=== PATIENT | female | born 1965 | race Caucasian/White ===

== ENCOUNTER 2016-08-07 23:03 | Emergency (ER) | payer OTHER ==
[2016-08-08 01:21] VITALS: BP 112/68
== END 2016-08-08 01:21 | disposition home or self-care (01) ==
LOC: ED 23:03
DX: K59.00 Constipation, unspecified (principal); I10 Essential (primary) hypertension

== ENCOUNTER 2017-07-27 20:40 | Emergency (ER) | payer MEDICAID ==
[~2017-07-27] VITALS: Ht 160 cm; Wt 82.5 kg
[2017-07-27 20:44] VITALS: Ht 160 cm; Wt 82.5 kg
[2017-07-27 23:14] LABS: BASOPHIL % 0.3 % (0-2); PLATELET COUNT 192 x10^3mcL (130-400); RED CELL DISTRIBUTION WIDTH 13.3 % (11.5-14.5)
[2017-07-27 23:16] LABS: CALCIUM 8.7 mg/dL (8.5-10.1); CARBON DIOXIDE 25.3 mmol/L (21-32); CREATININE SERUM 1.3 mg/dL (0.6-1.0); POTASSIUM SERUM 3.7 mmol/L (3.5-5.1)
[2017-07-27 23:20] LABS: ALBUMIN 3.5 g/dL (3.4-5.0); BILIRUBIN TOTAL 0.4 mg/dL (0.20-1.00); TOTAL PROTEIN, SERUM 7.7 g/dL (6.4-8.2)
[2017-07-28 01:23] VITALS: BP 119/76
== END 2017-07-28 01:24 | disposition home or self-care (01) ==
LOC: ED 20:40
PROVIDERS: Emergency Medicine
DX: R10.9 Unspecified abdominal pain (principal); R11.10 Vomiting, unspecified; R19.7 Diarrhea, unspecified; I10 Essential (primary) hypertension; Z88.6 Allergy status to analgesic agent; Z88.8 Allergy status to other drugs, medicaments and biological substances
CPT/HCPCS: 83880; 87046; 87046-59; J2270; J2405; J7030

== ENCOUNTER 2018-07-12 18:35 | Inpatient (IN) | payer OTHER ==
[~2018-07-12] VITALS: Ht 160 cm; Wt 86.2 kg
[2018-07-12 18:46] VITALS: Ht 160 cm; Wt 86.2 kg
--- NOTE | 2018-07-12 18:50 | NUR ---
PT BIB CAREGIVER S/P FALL ON THURSDAY. PER CAREGIVER ATTEMPTED TO GO TO URGENT CARE BUT WAS UNABLE TO BE SEEN DUE TO INSURANCE. PER CAREGIVER PT HAS BACK PAIN BUT DENIES PATIENT HITTING HEAD OR LOC. PT MENTATION WNL PER CAREGIVER. NO ACUTE DISTRESS NOTED. AWAITING ED BED AVAILABILITY.
--- NOTE | 2018-07-12 19:42 | NUR ---
RECEIVED 52 Y/O PT BIB CAREGIVER. PER PATIENT SHE FELL THURSDAY WHILE TAKING A SHOWER AND PREVIOUSLY FELL LAST THURSDAY WALKING DOWN THE HALLWAY. PATIENT HAS MIDDLE BACK PAIN THAT RADIATES THROUGHOUT HER BACK. PATIENT STATES THAT SHE HAS BEEN CRYING AND THAT THE PAIN HAS BEEN A 10/10. PATIENT IS A&O X4.
--- NOTE | 2018-07-12 20:17 | NUR ---
DR. MCNEAL AT BEDSIDE FOR MSE.
[2018-07-12 20:40] LABS: BASOPHIL % 0.6 % (0-2); PLATELET COUNT 186 x10^3mcL (130-400)
[2018-07-12 20:50] LABS: CALCIUM 8.2 mg/dL (8.5-10.1); CARBON DIOXIDE 28.9 mmol/L (21-32); CREATININE SERUM 1.3 mg/dL (0.6-1.0); POTASSIUM SERUM 3.4 mmol/L (3.5-5.1)
[2018-07-12 21:06] LABS: BILIRUBIN TOTAL 0.42 mg/dL (0.20-1.00); FREE T4 0.81 ng/dL (0.76-1.46); TOTAL PROTEIN, SERUM 6.8 g/dL (6.4-8.2)
[2018-07-12 21:11] LABS: ALBUMIN 2.9 g/dL (3.4-5.0)
--- NOTE | 2018-07-12 21:24 | NUR ---
PATIENT TRANSFERRED VIA WHEELCHAIR TO [facility] BY [facility].
--- NOTE | 2018-07-12 21:35 | NUR ---
PATIENT TRANSFERRED BACK FROM [place] [facility] BY [facility].
[2018-07-13] VITALS (7 sets, daily range): BP systolic 119–163; BP diastolic 72–105
[2018-07-13] MEDS ORDERED: PAROXETINE HCL30 MG (00:21)
[2018-07-13] MEDS ORDERED: DEPAKOTE500 MG PO ×2 (00:22→14:03)
[2018-07-13] MEDS ORDERED: SEROQUEL300 MG (00:22)
[2018-07-13] MEDS ORDERED: LOSARTAN POTASS50 M1 PO (00:25)
--- NOTE | 2018-07-13 00:31 | NUR ---
PT REPORT GIVEN TO CHRISTOPHER ANDRADE. QUESTIONS AND CONCERNS ADDRESSED.
[2018-07-13] MEDS ORDERED: TOPAMAX100 MG (00:34)
--- NOTE | 2018-07-13 00:55 | NUR ---
RECEIVED PT VIA GUERNEY FROM E/D, ACCOMPANIED BY RN AND TRANSPORTER. PT A/A/O X 4, CALM, COOPERATIVE, HX OF SEIZURES (SEIZURE PRECAUTIONS IN PLACE), MILD MENTAL DELAY. ON TELE # 13, ST, HR 110, DENIES CHEST PAIN OR DISCOMFORT AT THIS TIME. NO ACUTE RESPIRATORY DISTRESS NOTED. GENERALIZED WEAKNESS, FALL RISK PROTOCOL IN PLACE, STATES ACHING MIDDLE BACK PAIN RADIATING TO LOWER BACK, 01/27, EXCACERBATED BY MOVEMENT AND WALKING, RELIEVED BY REST AND PAIN MEDICATION; HAD FALL ON 07/10/18. IV SITE LAC 22G, CDI. ORIENTED PT TO ROOM, BED CONTROLS, CALL LIGHT SYSTEM. PADDED SIDE RAILS UP X 2, BED IN LOW POSITION. WILL ENDORSE TO LUPE SANTOS.
[2018-07-13] MEDS ORDERED: ZOCOR20 MG (01:19)
[2018-07-13] MEDS ORDERED: PEPCID20 MG PO (01:20)
[2018-07-13] MEDS ORDERED: SYNTHROID0.05 MG (01:20)
--- NOTE | 2018-07-13 02:42 | NUR ---
PATIENT IS RESTING IN BED COMFORTABLE AT THIS TIME. ON ROOM AIR. BREATHING IS EVEN AND UNLABORED. DENIES CHEST PAIN. NO C/O OF PAIN. IV TO THE LAC. PATENT AND INTACT. NO REDNESS OR SWELLING NOTED. SALINE LOCK. CALL LIGHT IS WITHIN REACH. INSTRUCTED PATIENT TO CALL FOR ASSISTANCE. WILL CONTINUE TO MONITOR
--- NOTE | 2018-07-13 03:33 | NUR ---
PATIENT C/O OF 7/10 BACK PAIN. PRN TYLENOL WAS ADMINSITERED PRESCRIBED. WILL CONTINUE TO MONITOR AND REASSESS PAIN LEVEL. CALL LIGHT IS WITHIN REACH.
--- NOTE | 2018-07-13 06:22 | NUR ---
PATIENT SLEPT IN INTERVAL THROUGHOUT THE NIGHT. NO ACUTE CHANGES NOTED. ON ROOM AIR. NO SOB OR RESP DISTRESS NOTED. BREATHING EVEN AND UNLABORED. IV TO THE LAC, 22G PATENT AND INTACT. NO REDNESS OR SWELLING NOTED. SALINE LOCK. DENIES CHEST PAIN. C/O OF BACK PAIN X1. MEDICATED WITH PRN TYLENOL WOULD GOOD RELIEF. COMFORT AND SAFETY MEASURES MAINTAINED. BED IS LOCKED AND IN THE LOWEST POSITION. SIDE RAILS UP X2. CALL LIGHT IS WITHIN REACH. WILL ENDORSE CARE TO DAY SHIFT RN
--- NOTE | 2018-07-13 07:07 | NUR ---
PATIENT IS GETTING US OF BLE AT THIS TIME
--- NOTE | 2018-07-13 07:20 | NUR ---
RECEIVED PT FROM SENIOR RECRUITMENT CONSULTANT. PT AWAKE, ALERT. A/OX4. PT CALM AND COOPERATIVE AT THIS TIME. PT ON RA WITH NO RESP DISTRESS NOTED. PT ON TELE #18, DENIES CHEST PAIN. IV ACCESS LAC 22G INFUSING NS WITH 20MEQ KCL AT 100ML/HR. NO APPARENT ISSUES WITH ELIMINATION AT THIS TIME. ACTIVE BS. PT STATES SHE HAS A PAIN IN HER LEFT FOOT. NO EDEMA NOTED, PERIPHERAL PULSES PALPABLE. SAFETY MEASURES IN PLACE, BED LOW AND LOCKED. CALL LIGHT WITHIN REACH.
--- NOTE | 2018-07-13 08:40 | NUR ---
SPOKE TO CAREGIVER GERALD GUADALUPEZ. PT HAS LIST OF HOME MEDS SHE WILL FAX ME TO CONTINUE AT THE HOSPITAL. DR FRANCE PAGED.
--- NOTE | 2018-07-13 12:00 | NUR ---
PT GETTING ECHO AT THIS TIME. FAMILY AT BEDSIDE. PT CALM AND COOPERATIVE. NO ACUTE DISTRESS OR DISCOMFORT NOTED. SAFETY MAINTAINED.
--- NOTE | 2018-07-13 12:30 | NUR ---
SPOKE TO DR FRANCE REGARDING PT HOME PSYCH MEDS. NEW ORDERS GIVEN.
[2018-07-13] MEDS ORDERED: [UNRECOGNIZED DRUG - OTHER] PO (12:37)
[2018-07-13] MEDS ORDERED: COLACE100 MG PO (13:22)
[2018-07-13] MEDS ORDERED: D-20001 TAB PO (13:23)
[2018-07-13] MEDS ORDERED: CLARITIN10 MG PO (13:24)
[2018-07-13] MEDS ORDERED: SENNA LAX8.6 MG PO (13:28)
[2018-07-13] MEDS ORDERED: IBUPROFEN400 MG PO (13:44)
[2018-07-13] MEDS ORDERED: APAP325 MG PO (13:48)
[2018-07-13] MEDS ORDERED: 24 HOUR ALLERG9.9 ML (13:52)
[2018-07-13] MEDS ORDERED: MULTI-VITAMINS1 TAB PO (13:53)
--- NOTE | 2018-07-13 14:35 | NUR ---
PT RESTING COMFORTABLY IN BED, WATCHING TELEVISION AND SMILING. NO ACUTE DISTRESS NOTED AT THIS TIME. SAFETY MEASURES IN PLACE, CALL LIGHT WITHIN REACH.
--- NOTE | 2018-07-13 16:30 | NUR ---
ALL NEEDS MET AT THIS TIME. NO DISTRESS OR DISCOMFORT NOTED.
--- NOTE | 2018-07-13 18:26 | NUR ---
PT UP AT BEDSIDE EATING DINNER. NO ACUTE DISTRESS OR DISCOMFORT NOTED AT THIS TIME. ALL NEEDS ATTENDED TO THROUGHOUT SHIFT. PT STABLE AT THIS TIME. SAFETY MEASURES MAINTAINED. WILL CONTINUE TO MONITOR AND ENDORSE TO PROFESSOR OF ENVIRONMENTAL STUDIES.
--- NOTE | 2018-07-13 20:16 | NUR ---
PT RECIEVED AAO REG RESP NO SOB,IV INFUSING WELL WITH THE SITE PATENT AND INTACT,PT ON TELE MONITOR AND IN NSR NO ECTOPY OR CHEST PAIN AT THIS TIME, BED IN THE LOW POSITION AND LOCKED,CALL LIGHT EASY REACHED AND WILL CONTINUE TO MONITOR,CALL LIGHT EASY REACHED AND WILL CONTINUE TO MONITOR.
--- NOTE | 2018-07-14 02:23 | NUR ---
PT SLEEPING SOUNDLY AT THIS TIME,WILL CONTINUE TO MONITOR.
[2018-07-14 05:44] VITALS: BP 164/90
--- NOTE | 2018-07-14 06:31 | NUR ---
PT HAD A RESTING NIGHT NO CHANGE AT THIS TIME,MADE COMFORTABLE IN BED AND WILL CONTINUE TO MONITOR.
[2018-07-14 06:50] LABS: CALCIUM 8.7 mg/dL (8.5-10.1); CARBON DIOXIDE 24.6 mmol/L (21-32); CHLORIDE SERUM 109 mmol/L (98-107); CHOLESTEROL 163 mg/dL (<200); CHOLESTEROL/HDL RATIO 4.2; CREATININE SERUM 0.9 mg/dL (0.6-1.0); GFR1 > 60 mL/min; GLUCOSE SERUM 87 mg/dL (74-106); HDL CHOLESTEROL 39 mg/dL (40-60); POTASSIUM SERUM 4.1 mmol/L (3.5-5.1); SODIUM SERUM 143 mmol/L (136-145); TRIGLYCERIDES 133 mg/dL (<150)
--- NOTE | 2018-07-14 07:15 | NUR ---
RCD REPORT FROM LUPE HESS. PATIENT AWAKE, NO DISTRESS NOTED. EKG BEING PERFORMED. BED LOW, CALL LIGHT WITHIN REACH. NS 20 MEQ POTASSIUM AT 100 ML/HR TO RIGHT WRIST WITHOUT COMPLICATIONS. WILL MONITOR.
--- NOTE | 2018-07-14 07:40 | NUR ---
SHIFT ASSESSMENT PERFORMED AND DOCUMENTED. PATIENT SITTING UP EATING BREAKFAST. DENIES CHEST PAIN OR SHORTNESS OF BREATH. BED ALARM ON, YELLOW BAND PLACED, YELLOW STAR ON DOOR. PATIENT HAD FALL LAST WEEK PRIOR TO ADMISSION. PATIENT APPEARS TO HAVE SLOW MENTATION BUT A/OX4, FLAT AFFECT. WILL MONITOR.
[2018-07-14 09:29] VITALS: BP 144/69
--- NOTE | 2018-07-14 09:42 | NUR ---
PHYSICAL THERAPY WORKING WITH PATIENT. PATIENT IS GROGGY BUT GENERALLY COOPERATIVE.
[2018-07-14] MEDS ORDERED: SEROQUEL200 MG PO (09:49)
[2018-07-14] MEDS ORDERED: PAROXETINE HCL20 M1 PO (09:49)
--- NOTE | 2018-07-14 11:10 | NUR ---
SPOKE WITH GERALD FROM PATIENT'S BOARD AND CARE FACILITY. DISCUSSED THAT PATIENT IS READY FOR DISCHARGE PER DR. BEAR, CLEARED BY DR. RAMOS, LANDSCAPE FOREMAN. DISCUSSED PATIENT'S PAXIL AND SEROQUEL WILL BE REDUCED DOSAGES. PER GERALD, YULIA SYED, HER EMPLOYEE, WILL PICK PATIENT UP.
[2018-07-14 11:23] VITALS: BP 144/69
--- NOTE | 2018-07-14 11:56 | NUR ---
CAREGIVER, YOSELYN SYED, HERE TO ACCOUNT SERVICES ANALYST PATIENT. DISCUSSED WITH YOSELYN DISCHARGE INSTRUCTIONS, OUTPATIENT FOLLOW UP, DISCHARGE MEDICATIONS (PRESCRIPTION GIVEN). REMOVED IV TO RIGHT HAND, SITE WITHOUT COMPLICATIONS. YOSELYN ASSISTING PATIENT WITH GETTING DRESSED AND WILL CALL FOR WHEELCHAIR WHEN READY TO GO. DISCUSSED FALL RISK PRECAUTIONS IN LIGHT OF PATIENT'S RECENTS FALLS. YOSEYLN VERBALIZED UNDERSTANDING.
--- NOTE | 2018-07-14 11:59 | NUR ---
TELE 13 REMOVED AND RETURNED TO TELEMETRY.
== END 2018-07-14 12:07 | disposition home or self-care (01) | DRG 347 ==
LOC: ED 18:35 → DU 07-13 00:03
PROVIDERS: Emergency Medicine; Internal Medicine Cardiovascular Disease; ADMIT Internal Medicine Pulmonary Disease
DX: M54.5 Low back pain (principal); N17.9 Acute kidney failure, unspecified; N18.3 Chronic kidney disease, stage 3 (moderate); R00.0 Tachycardia, unspecified; M51.36 Other intervertebral disc degeneration, lumbar region; I12.9 Hypertensive chronic kidney disease with stage 1 through stage 4 chronic kidney disease, or unspecified chronic kidney disease; E87.6 Hypokalemia; R27.0 Ataxia, unspecified; F79 Unspecified intellectual disabilities; R29.6 Repeated falls; W18.39XA Other fall on same level, initial encounter; Y93.89 Activity, other specified; Y92.89 Other specified places as the place of occurrence of the external cause; Y99.8 Other external cause status; Z88.8 Allergy status to other drugs, medicaments and biological substances; G40.909 Epilepsy, unspecified, not intractable, without status epilepticus; E66.9 Obesity, unspecified; Z68.33 Body mass index [BMI] 33.0-33.9, adult; Z71.3 Dietary counseling and surveillance
CPT/HCPCS: 84439; J1650; J1885; J3480; J7030; Q0092

== ENCOUNTER → 2019-04-01 | Day surgery (SDC) | payer OTHER ==
[~2019-04-01] VITALS: Ht 157.5 cm; Wt 88.5 kg
[~2019-04-01] MED LIST: 24 HOUR ALLERG9.9 ML; APAP325 MG PO; CLARITIN10 MG PO; COLACE100 MG PO; D-20001 TAB PO; DEPAKOTE500 MG PO; IBUPROFEN400 MG PO; LOSARTAN POTASS50 M1 PO; MULTI-VITAMINS1 TAB PO; PAROXETINE HCL20 M1 PO; PAROXETINE HCL30 MG; PEPCID20 MG PO; SENNA LAX8.6 MG PO; SEROQUEL200 MG PO; SEROQUEL300 MG; SYNTHROID0.05 MG; TOPAMAX100 MG; ZOCOR20 MG; [UNRECOGNIZED DRUG - OTHER] PO
[2019-04-01 08:00] VITALS: BP 150/86
[2019-04-01 16:53] VITALS: BP 156/90
== END | disposition home or self-care (01) ==
LOC: GI 07:27 → OR 09:00
DX: Z12.11 Encounter for screening for malignant neoplasm of colon (principal); D12.4 Benign neoplasm of descending colon; D12.2 Benign neoplasm of ascending colon; D12.3 Benign neoplasm of transverse colon; K63.89 Other specified diseases of intestine; G47.33 Obstructive sleep apnea (adult) (pediatric); E03.9 Hypothyroidism, unspecified; F20.9 Schizophrenia, unspecified; E78.00 Pure hypercholesterolemia, unspecified; Z88.8 Allergy status to other drugs, medicaments and biological substances; Z79.899 Other long term (current) drug therapy; Z98.891 History of uterine scar from previous surgery
CPT/HCPCS: 45378; J1200; J1610; J2250; J2310; J3010; J3490

== ENCOUNTER → 2019-04-29 | Outpatient (CLI) | payer OTHER ==
[2019-04-27 16:13] LABS: CREATININE SERUM 1.1 mg/dL (0.6-1.0)
== END | disposition home or self-care (01) ==
LOC: CT 08:34
PROVIDERS: Internal Medicine Gastroenterology
PROC: BW211ZZ Computerized Tomography (CT Scan) of Abdomen and Pelvis using Low Osmolar Contrast (ICD-10-PCS; principal; 2019-04-29)
DX: K62.5 Hemorrhage of anus and rectum (principal)
CPT/HCPCS: A9698; Q9967